=== PATIENT | male | born 1980 | race American Indian/Alaskan Native ===

== ENCOUNTER 2016-07-19 09:15 | Emergency (ER) | payer OTHER, BC ==
[2016-07-19 09:22] VITALS: BP 151/95; PULSE 79; TEMP 98; O2SAT 96; BMI 29.8
[2016-07-19] MEDS ORDERED: Naproxen 500 MG TAB PO ONE (09:27)
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
--- NOTE | 2016-07-19 14:31 | RAD ---
PROCEDURE: Left Knee Radiographs. HISTORY: Pain. COMPARISON: None. FINDINGS: BONES: No acute fracture. There is a plate and screw fixation device along the proximal tibia, lateral aspect, presumably for ORIF proximal tibial fracture. JOINTS: Normal. No osteoarthritis. JOINT EFFUSION: None. OTHER FINDINGS: None. IMPRESSION: No acute fracture
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
== END 2016-07-19 11:22 | disposition home or self-care (01) ==
LOC: H.ER 09:15
DX: S33.5XXA Sprain of ligaments of lumbar spine, initial encounter (principal); S80.02XA Contusion of left knee, initial encounter; V43.52XA Car driver injured in collision with other type car in traffic accident, initial encounter; Y92.410 Unspecified street and highway as the place of occurrence of the external cause; Y99.0 Civilian activity done for income or pay